=== PATIENT | male | born 1990 | race Caucasian/White ===

== ENCOUNTER 2017-06-25 20:11 | Emergency (ER) | payer OTHER ==
[~2017-06-25] VITALS: Ht 175.3 cm; Wt 63.5 kg
[2017-06-25] MEDS ORDERED: SODIUM CHLORIDE 0.9% 1,000 ML IV ONE (20:22)
[2017-06-25] MEDS ORDERED: SODIUM CHLORIDE 0.9% 1,000ML IVBOLUS ONE (20:30)
[2017-06-25] MEDS ORDERED: FAMOTIDINE 20 MG/2 ML IVP ONE (20:30)
[2017-06-25] MEDS ORDERED: ONDANSETRON 2MG/ML, 2ML IVPush ONE (20:30)
[2017-06-25] MEDS ORDERED: ONDANSETRON 2MG/ML, 2ML ONE (20:52)
[2017-06-25] MEDS ORDERED: FAMOTIDINE 20 MG/2 ML ONE (20:52)
[2017-06-25 21:10] LABS: MEAN CORPUSCULAR HEMOGLOBIN 30.7 pg (27.5-34.5); MEAN CORPUSCULAR HGB CONC 34.3 g/dL (33.2-36.2); MEAN CORPUSCULAR VOLUME 89.2 fL (81-97); MEAN PLATELET VOLUME 7.9 fL (7.4-10.4); PLATELET COUNT 173 x10^3/uL (130-400); RED BLOOD COUNT 5.33 x10^6/uL (4.38-5.82); RED CELL DISTRIBUTION WIDTH 12.6 % (9.4-14.8)
[2017-06-25 21:19] LABS: ALANINE AMINOTRANSFERASE 29 U/L (12-78); ALBUMIN 4.2 g/dL (3.4-5.0); ANION GAP 10 mmol/L (5-15); CALCIUM 9.1 mg/dL (8.5-10.1); CHLORIDE 106 mmol/L (98-107); CREATININE 1.07 mg/dL (0.7-1.3)
[2017-06-25 21:22] LABS: ALKALINE PHOSPHATASE 85 U/L (45-117); BILIRUBIN,TOTAL 1.3 mg/dL (0.2-1.0)
[2017-06-25 21:26] LABS: MD YES
[2017-06-25 21:28] LABS: BAND#(MANUAL) 0.42 x10^3/uL; BANDS%(MANUAL) 4 % (0-7); BASOS#(MANUAL) 0.11 x10^3/uL (0-0.1); BASOS% (MANUAL) 1 % (0-1); MONOS#(MANUAL) 0.11 x10^3/uL (0.3-2.7); MONOS% (MANUAL) 1 % (2-9); SEG#(MANUAL) 9.87 x10^3/uL (1.8-6.8); SEGS% (MANUAL) 94 % (42-75)
[2017-06-25 21:29] LABS: <PLATELET ESTIMATE> ADEQUATE; <PLT MORPHOLOGY> NORMAL PLT MORPH; <RBC MORPHOLOGY> NORMAL
[2017-06-25 22:41] VITALS: BP 104/58
== END 2017-06-25 22:45 ==
LOC: ED 22:15
DX: R19.7 Diarrhea, unspecified (principal); R11.2 Nausea with vomiting, unspecified; Z88.8 Allergy status to other drugs, medicaments and biological substances
CPT/HCPCS: 36415; 74021; 80053; 83690; 85025; 96361; 96374; 96375; 99285; J2405; J7030; S0028